=== PATIENT | female | born 1955 | race Caucasian/White ===

== ENCOUNTER → 2024-01-23 10:22 | Outpatient (BNVA) | payer MEDICARE, OTHER, SELFPAY | PROVIDERS: PCP Internal Medicine; Referring Provider Internal Medicine; Visit Provider Surgery ==

== ENCOUNTER 2024-01-23 12:22 | Outpatient (CLI) | payer MEDICARE, OTHER, SELFPAY ==
[2024-01-23 12:18] LABS: Prothrombin Time 10.3 sec (9.1-11.1)
[2024-01-23 14:18] LABS: ALT 26 U/L (14-59); AST 24 U/L (15-37); Alkaline Phosphatase 191 U/L (46-116); Bilirubin, Direct 0.2 mg/dL (0.0-0.2); Bilirubin, Total 0.47 mg/dL (0.2-1.0); Total Protein 8.5 g/dL (6.4-8.2)
== END 2024-01-23 12:23 | disposition home or self-care (01) ==
LOC: LBO 12:26
PROVIDERS: PCP Internal Medicine; Visit Provider Surgery
DX: K74.60 Unspecified cirrhosis of liver (principal); R16.1 Splenomegaly, not elsewhere classified; I85.00 Esophageal varices without bleeding; K76.6 Portal hypertension; K92.2 Gastrointestinal hemorrhage, unspecified
CPT/HCPCS: 36415; 80076; 99204; 85610

== ENCOUNTER 2024-01-30 01:59 | Outpatient (CLI) | payer MEDICARE, SELFPAY ==
--- NOTE | 2024-01-30 06:45 | DI.US_ITS ---
Exam(s) US ABDOMEN EXAM: US ABDOMEN CLINICAL HISTORY: esophageal varices,cirrhosis of liver,splenomegaly,portal hypertension TECHNIQUE: Ultrasound abdomen performed using standard protocol. COMPARISON: No exams were available for comparison FINDINGS: ABDOMINAL AORTA AND IVC: Visualized portions normal caliber. PANCREAS: Normal where visualized. LIVER: The liver has a nodular contour suggesting hepatic cirrhosis. The liver measures 13.9 cm long . Liver is echogenic. This is consistent with fatty infiltration. Hepatopetal flow in the Portal V ein. GALLBLADDER:Gallstones are present. No evidence of wall thickening. No pericholecystic fluid identif ied. BILIARY SYSTEM: Common bile duct measures < 7 mm. No intrahepatic biliary ductal dilation. WHITE'S SIGN: Negative. KIDNEYS: Kidneys are symmetric in size. No evidence of renal calculi. No evidence of hydronephrosis. There is a 2.5 x 3.0 cm simple left renal cyst. No follow-up is recommended. SPLEEN: Not enlarged. ASCITES: None seen. IMPRESSION: 1. Findings suggestive of hepatic cirrhosis and hepatic steatosis. 2. Cholelithiasis. No sonographic evidence of acute cholecystitis. DATA REPOSITORY:
== END 2024-01-30 02:19 ==
LOC: DI 02:00
PROVIDERS: PCP Internal Medicine; Visit Provider Surgery
DX: R16.1 Splenomegaly, not elsewhere classified; I85.00 Esophageal varices without bleeding
CPT/HCPCS: 76700

== ENCOUNTER 2024-02-26 09:49 | Day surgery (SDC) | payer MEDICARE, SELFPAY ==
--- NOTE | 2024-02-25 14:58 | HPE_ITS ---
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 and/or family could understand) explaining risks vs benefits and alternatives to the procedure and consequences if we do not do the procedure and need/rational for the procedure. Risks include but are not limited to: bleeding, infection, perforation of esophagus, stomach, colon, small intestines, bronchus or trachea, or PTX. This would necessitate emergency surgery to repair the damage w/ possible ostomy; and other associated complications w/ the required surgery. Also complications of anesthesia including aspiration, WA/CVA/. History of Present Illness Narrative: Patient is here today for egd for anemia/varices They not having any chest pain or shortness of breath, currently.? They are not experiencing any fever or chills.? They deny any productive cough or upper respiratory tract infection signs or symptoms.? They are not having abdominal pain, or nausea and vomiting.? They have not had any changes in medications, past medical history or past surgical history since previously being seen in the office. They have not had any accidents or have been in the ER since the clinic pre-operative evaluation. ??I reviewed the procedure with the patient today, including risks and benefits of the procedure, and what they could expect at home for recovery.? All questions are answered to the patient?s satisfaction today, and they are stable to proceed with the proposed procedure. Office Visiti 01/22 (1) Splenomegaly, not elsewhere classified: (2) Unspecified cirrhosis of liver: 1. Iron Deficiency Anemia. Her recent lab results are satisfactory, with no evidence of blood in the stool. However, her iron levels are slightly low, albeit within normal range. The primary concern is her liver condition. She has a history of esophageal varices, with the last stomach scope performed 2 years ago. Her hemoglobin levels were mildly low around July or August 2023. Currently, she does not have ascites and is maintaining her weight. A repeat CBC will be conducted. A liver panel and bleeding time will be ordered today. An ultrasound has been scheduled to monitor her liver and spleen. An endoscopy will be arranged for February 2024 to examine her esophagus, stomach, and varices. Biopsies will be taken from the stomach during this procedure. She is advised to arrange for someone to drive her home post-procedure and to rest for the remainder of the day. A release form will be provided for her to sign so that her records from the animal eviscerator and trading assistant in [place] can be obtained. If the varices are larger than grade 2 or increasing in size, a referral will be made for esophageal banding. 2. Esophageal Varices. She has a history of esophageal varices, with the last stomach scope performed 2 years ago. Currently, she does not have ascites and is maintaining her weight. An endoscopy will be arranged for February 2024 to examine her esophagus, stomach, and varices. Biopsies will be taken from the stomach during this procedure. She is advised to arrange for someone to drive her home post- procedure and to rest for the remainder of the day. If the varices are larger than grade 2 or increasing in size, a referral will be made for esophageal banding. 3. Liver Disease. She has a history of liver disease, including cirrhosis and esophageal varices. A liver panel and bleeding time will be ordered today. An ultrasound has been scheduled to monitor her liver and spleen. She is advised to abstain from alcohol completely and to quit smoking. A release form will be provided for her to sign so that her records from the animal eviscerator and trading assistant in [place] can be obtained. 4. Medication Management. She is currently taking omeprazole 20 mg once a day for her stomach. She reports no issues with the medication. Informed consent is obtained for the procedural (explained in simple layman's terms that the pt. and/or family could understand) explaining risks vs benefits and alternatives to the procedure and consequences if we do not do the procedure and need/rational for the procedure. Risks include but are not limited to: bleeding, infection, perforation of esophagus, stomach, colon, small intestines, bronchus or trachea, or PTX. This would necessitate emergency surgery to repair the damage w/ possible ostomy; and other associated complications w/ the required surgery. Also complications of anesthesia including aspiration, WA/CVA/. I am also awaiting the results of her last colonoscopy from [place] and to review pathology. At the this time I do not think she needs to have a repeat colonoscopy. But I do want to see her previous report before I make that final determination. Will also get further reports from her GI and animal eviscerator in [place]. They are moving to [place] permanently/will no longer be going to [place] for chung. (3) Gastrointestinal hemorrhage, unspecified: (4) Portal hypertension: (5) Esophageal varices without bleeding: Orders RN: pt referred to us by Dr. Sandoval, reports past history of blood transfusion, history of cirrhosis of liver, states stopped drinking alcohol 2 years ago. Pt states SOB, relates this to smoking PPD for 50 years, currently down to 1/2 pack a day. Pt denies family history of colon cancer. Pt denies weight loss or loss of appetite. The patient has had an EGD previously. ? There is no family history of any esophageal/gastric cancer.? Patient has not had any weight loss.? Their appetite is good.? The patient has been eating: yes Stomach medications: omeprazole. about a year Swallowing: Reflux/Wet Burps: Nausea/vomiting: no Epigastric pain: no Chest pain/burning: Melena/blood in stools/anemia: anemia- mild. Constipation or diarrhea: occ both. Dental issues: Nocturnal problems: Prior head/neck/esophageal surgery or radiation. Pt may have had a stomach scope in [facility]. had CE at same time unsure of dates. We do not have any endoscopy reports or pathology. We will attempt to obtain these. Coffee: 1 decaf Soda/Tea: none ASA/NSAID?s: no asa. ibuprofen- 1/week. Tobacco: 1/2 ppd THC: ETOH: no They deny any problems with anesthesia in the past. Anesthesia: general (without airway) Previous surgical intolerances: No Previous surgical complications: No Pulmonary risk factors: Planned procedure: Yes Sleep apnea risks: No COPD/Asthma/Smoker: smoker. denies copd. no COREY Can climb one flight of stairs (12-13 steps) in less than 30 seconds without stopping and without symptoms: Yes The surgery proposed for this patient is: low risk Active cardiac conditions: none Active risk factors: none ASA (acetylsalicylic acid): not used Beta blockers: not used Kidneys: no concerns DM: no no prior stress test or echo pt is saware of. US of liver 2 yrs ago. liver cirrohsis had ascites at that time. Hep C- doens' tknow status. sees heme in [facility]. Cheryl- dalia poe- Gi doctor No WA/CVA ?Patient needs to be Natural airway general because of:? Medical conditions/airway control/ ?Pain control? Meds/NKDA/PMHx/PSHx: see [facility] The patient is a 68-year-old female who is here today regarding iron deficiency anemia. She is a patient of Dr. Gimenez and is accompanied by an adult male. She reports no pain or difficulty swallowing and has not experienced heartburn or indigestion. She maintains a good appetite without any weight loss. She does not suffer from nausea or vomiting and has not observed any blood or dark tarry stools. However, she occasionally experiences constipation and diarrhea. She has been on omeprazole once daily for about a year. She underwent a stomach scope in 2020 and a colonoscopy in [place], [place]. Her diet includes one cup of decaf coffee daily, but she avoids soda, tea, and energy drinks. She does not take aspirin daily but uses ibuprofen approximately once a week for headaches. She smokes half a pack a day and quit drinking alcohol two years ago. She has never been diagnosed with emphysema, COPD, sleep apnea, heart attack, stroke, or diabetes. She has not undergone a stress test or echo of her heart, nor has she had a recent CT or ultrasound of her liver. The last imaging of her liver was likely two years ago when she was hospitalized and diagnosed with cirrhosis. At that time, 2.7 liters of fluid were drained from her abdomen, but this procedure has not been repeated. She underwent extensive testing during her hospital stay, including a bone marrow aspiration. Her last visit to the cancer center was six to seven months ago, where she saw a animal eviscerator and had her liver and kidney function tested. She was prescribed Protonix for esophageal varices but has not had any active bleeding or noticed blood in her stools. She has not had a recent ultrasound of her liver but believes her liver labs were repeated in [place] six months ago as part of her routine blood work. She has not undergone esophageal banding. She reports no leg swelling and had no issues with anesthesia during her last procedure. She has two artificial hips and may require a revision of her hip socket due to chronic pain. Review of Systems All systems reviewed & are unremarkable except as noted in HPI and below PFSH All Active Problems Polyneuropathy, unspecified (Acute) Unspecified cirrhosis of liver (Acute) Splenomegaly, not elsewhere classified (Acute) Warm autoimmune hemolytic anemia (Acute) Medical History Esophageal varices without bleeding Portal hypertension Gastrointestinal hemorrhage, unspecified Surgical History Hx of bilateral hip replacements History of colonoscopy (~06/17/21) Normal colonoscopy, internal hemorrhoids done at [facility]. Social History Smoking/Tobacco Use Status: Current every day Tobacco Type: cigarettes Smoking risk assessment performed?: Yes Alcohol Intake: never Drug use: Never Substance use type: does not use Housing: house Do you feel safe at home: Yes Do you feel safe in your relationship?: Yes Meds Allergies and Home Medications Allergies Allergy/AdvReac Type Severity Reaction Status Date / Time heparin Allergy Unknown Pt reports Verified 02/26/24 09:56 post op [facility] Right total hip codeine AdvReac Intermediate nausea Verified 02/26/24 09:56 Home Medications ?Medication ?Instructions ?Recorded ?Confirmed ?Type albuterol sulfate 90 mcg/actuation 2 puff inhalation Q6H PRN 12/26/23 02/26/24 History aerosol inhaler alprazolam 1 mg tablet (Xanax) 1 mg PO BID PRN 01/23/24 02/25/24 History dorzolamide 22.3 mg-timolol 6.8 1 drp ophthalmic (eye) BID 01/23/24 02/25/24 History mg/mL eye drops folic acid 1 mg tablet 1 mg PO DAILY 01/23/24 02/26/24 History gabapentin 300 mg capsule 300 mg PO BID PRN 01/23/24 02/25/24 History latanoprost 0.005 % eye drops 1 drp ophthalmic (eye) QPM 01/23/24 02/25/24 History mecobalamin (vitamin B12) 1,000 1,000 mcg PO DAILY 01/23/24 02/25/24 History mcg chewable tablet omeprazole 20 mg capsule,delayed 20 mg PO DAILY 01/23/24 02/26/24 History release Exam Narrative Exam Narrative: PHYSICAL EXAM GENERAL APPEARANCE: Alert, healthy appearance, oriented, x 3,? in no acute distress HYDRATION: Well hydrated HEAD, EYES, EARS, NECK, THROAT: Head is normocephalic, pupils equal, round, reactive to light and accommodation, ocular movement intact, sclera clear and no jaundice. ?Dentition intact. LUNGS: normal respiration/normal chest excursion. ?Clear to auscultation bilaterally. ?No wheeze. ?HEART: Regular rate and rhythm. no murmurs ABDOMEN: soft and non-tender to palpation.? Normal bowel sounds.? Const Other: PHYSICAL EXAM GENERAL APPEARANCE: Alert, healthy appearance, oriented, x 3,? in no acute distress HYDRATION: Well hydrated HEAD, EYES, EARS, NECK, THROAT: Head is normocephalic, pupils equal, round, reactive to light and accommodation, ocular movement intact, sclera clear and no jaundice. ?Dentition intact. LUNGS: normal respiration/normal chest excursion. ?Clear to auscultation bilaterally. ?No wheeze. ?HEART: Regular rate and rhythm. no murmurs ABDOMEN: soft and non-tender to palpation.? Normal bowel sounds.? Time Spent Time spent with Patient: <40 minutes Time was spent: preparing to see the patient(eg.review tests), obtaining and/or reviewing separately otained hiistory, ordering medications,tests, procedures, referring, communicating with other health day care home provider, indepentently interpreting results, counseling the patient, care coordination and other
--- NOTE | 2024-02-25 15:02 | ENDO_ITS ---
Date of service: 02/26/24 Time of Service: 11:30 Endoscopy Report DATE OF PROCEDURE: 02/26/24 PRE-OP DIAGNOSIS: Anemia/history of cirrhosis and esophageal varices secondary to alcohol POST-OP DIAGNOSIS: other (minmmal gastritis ) SURGEON: Hilda Lorenzo ANESTHESIA TYPE: General:No Airway PATHOLOGY: other COMPLICATIONS: None DISPOSITION: same day PROCEDURE DESCRIPTION: Informed consent was obtained from the pt; explaining the benefits and Risks: bleeding, infections, perforations {which could require surgery or antibiotics and prolonged hospital stay}, or ostomy, and complications of anaesthesia, julissa aspiration). The patient was take to the procedure room and placed in a supine position. Monitors were applied and a time out was done. The patients name, date of , procedure type, allergies to medications and metal in their body was reviewed. A bite block was placed and the patient was sedated. Once sedated and comfortable an Olympus gastroscope (see RN notes for scope #) was advanced through the oropharynx which was grossly normal, and passed into the esophagus. The proximal and mid-esophagus were normal. The distal esophagus does not show any: dilation/strictures/varices/erosions or ulcers/bleeding noted. The scope was advanced into the stomach and through the pylorus into the proximal jejunum. A bx is taken for celiac Dx . The duodenum was noted to be- very mild duodenitis. Biopsies were done of the duodenal bulb.. The scope was retracted back into the stomach and biopsies were taken of the antrum. There were no gastritis/gastropathy/ ulcers/masses noted. The scope was retroflexed. The cardia and fundus were noted to be normal. There is no hiatal hernia noted. The scope was retracted back into the esophagus and biopsies were done of the GE junction (in all 4 quadrants) and distal esophagus (2cm above the GE junction) to rule out Roberts's. All specimens are retrieved and no bleeding was noted. The Z line was regular. The GE junction was at 38 cm. The scope was removed and the patient was woken up and taken back to [facility] in stable condition.
--- NOTE | 2024-02-25 15:03 | PDOC.DSDIS_ITS ---
Date of service: 02/26/24 Time of Service: 11:45 Discharge Plan Disposition Patient Disposition: Home Condition: Good Discharge Details Reason For Visit: egd Attending Provider: Hilda Lorenzo Primary Care Provider: Yocasta Sandoval Home Meds and New Rx's Prescriptions: New pantoprazole [Protonix] 40 mg tablet,delayed release (DR/EC) 40 mg PO DAILY Qty: 90 5RF Continued folic acid 1 mg tablet 1 mg PO DAILY mecobalamin (vitamin B12) 1,000 mcg tablet,chewable 1,000 mcg PO DAILY latanoprost 0.005 % drops 1 drp ophthalmic (eye) QPM dorzolamide-timolol 22.3-6.8 mg/mL drops 1 drp ophthalmic (eye) BID gabapentin 300 mg capsule 300 mg PO BID PRN alprazolam [Xanax] 1 mg tablet 1 mg PO BID PRN albuterol sulfate 90 mcg/actuation HFA aerosol inhaler 2 puff inhalation Q6H PRN Discontinued omeprazole 20 mg capsule,delayed release(DR/EC) 20 mg PO DAILY Discharge Instructions Additional Instructions: Post EGD Instruction ?You had anesthesia for your EGD/stomach scope today.? For your safety, please do the following for the next twenty-four (24) hours: Do Not operate a motor vehicle (car, truck, motorcycle, etc.) Do Not drink alcoholic beverages or use any recreational drugs for the first 24 hours or while taking pain medications. The medications in your body may have a reaction that can be dangerous. Do Not make any important decisions or sign any important papers You have just had a gastroscopy (EGD) or upper GI tract examination. It is important for your smooth recovery that you carefully follow the recommendations below. Do not hesitate to call if any questions should arise about your anesthesia, condition, or care. -Symptoms you may experience during the next 24 hours: ?1. Mild abdominal pain or excessive gas or a bloated feeling which improves with rest, liquids, eating? slightly, and walking as tolerated. 2. Drowsiness and/or forgetfulness because of the medications you were given. 3. A sore throat which you can treat with throat lozenges or by gargling with salt water 4-5 times a day. 4. Redness at the site of your IV which you can treat with warm compresses. SPECIAL INSTRUCTIONS: 1. You may resume your previous diet in one hour. We recommend a light meal to start, then progress as tolerated. 2. Restart regular medications in one hour. 3. No aspirin or non-steroidal containing medication for 24 hrs. 4. No lifting over 20 pounds or strenuous activity for the first 24 hours after your procedure. After 24 hours there are no restrictions on your activity, but you may feel fatigued for a few days. -Findings: very mild gastritis (irritation) of stomach -Medications: Protonix -Continue to follow lifestyle modifications: No alcohol (lifelong) , tobacco products, Aspirin or NSAID's (ibuprofen, Motrin, Naprosyn, aleve, etc).? Try to limit/avoid:? soda pop/any carbonated beverages, caffeine (including tea & chocolate), and acidic foods, (tomatoes, citrus, onions, peppermints) spicy or fried/fatty foods. Do not lie down for 30 minutes after eating, and do not eat 2 hours prior to bedtime. Avoid wearing tight fitting clothing/ belts. Follow up: -My office will send a letter with the results of your biopsy?s in 2-3wks time. Call the office at [phone] (Office) or [phone] (Hospital), or go to the ER right away if you notice any of the followin. Vomiting blood and /or ?coffee ground? material. ?2. Worsening of abdominal pain or cramping. ?3. Trouble with breathing, cough, and/or fever (temperature above 101.5 F). 4. Increasing pain with swallowing. ?5. Chest pain. 6. Any new symptoms. 7. 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 Patient has minimal sore throat.? They have been able to tolerate liquids.? They do not have any nausea vomiting.? They are not having any chest pain or shortness of breath.? They have been able to pass gas and are not having any abdominal pain or distention.? They have not vomited any blood.? The vital signs have been stable-see nursing notes. We discussed findings on their endoscopy. We reviewed the importance of lifestyle modification-see discharge instructions We reviewed any new medications that the patient may be prescribed-see discharge instructions Patient will either be sent a letter with the biopsy results or follow-up in the office-see discharge instructions. Patient was given explicit instructions to follow-up regarding post endoscopy- refer to discharge Patient verbalized understanding and discharged in stable and satisfactory condition.? See nursing notes. (6) Portal hypertension: (7) Gastrointestinal hemorrhage, unspecified: (8) Gastritis: Status: Acute
[2024-02-26 09:58] VITALS: BP 120/66; PULSE 86; RESP 18; TEMP 36.2; O2SAT 100
[2024-02-26] MEDS: Lactated Ringers 1,000 ML 80 ML IV (10:19)
--- NOTE | 2024-02-26 10:21 | ANES.PREOP_ITS ---
General Info Date of Service Date Performed: 02/26/24 Height: 5 ft Weight: 57.6 kg Body Mass Index (BMI): 24.7 Surgical Procedure: Operation Date: 02/26/24 10:20 Proposed Procedure Side Surgeon p Gastroscopy Hilda Lorenzo DO Pre-Op Diagnosis Post-Op Diagnosis Esophageal varices GI hemorrhage Meds Allergies and Home Medications Allergies Allergy/AdvReac Type Severity Reaction Status Date / Time heparin Allergy Unknown Pt reports Verified 02/26/24 09:56 post op [place] Right total hip codeine AdvReac Intermediate nausea Verified 02/26/24 09:56 Home Medication ?Medication ?Instructions ?Recorded albuterol sulfate 90 mcg/actuation 2 puff inhalation Q6H PRN 12/26/23 aerosol inhaler alprazolam 1 mg tablet (Xanax) 1 mg PO BID PRN 01/23/24 dorzolamide 22.3 mg-timolol 6.8 1 drp ophthalmic (eye) BID 01/23/24 mg/mL eye drops folic acid 1 mg tablet 1 mg PO DAILY 01/23/24 gabapentin 300 mg capsule 300 mg PO BID PRN 01/23/24 latanoprost 0.005 % eye drops 1 drp ophthalmic (eye) QPM 01/23/24 mecobalamin (vitamin B12) 1,000 1,000 mcg PO DAILY 01/23/24 mcg chewable tablet omeprazole 20 mg capsule,delayed 20 mg PO DAILY 01/23/24 release Current Visit Medications: Current Medications Generic Name Dose Route Start Last Admin Trade Name Freq PRN Reason Stop Dose Admin Hyoscyamine Sulfate 0.125 mg 02/26/24 03:01 Hyoscyamine 0.125 Mg Sl/Oral/Chew SL 03/27/24 03:00 DIRECTED PRN Ringer's Solution 1,000 mls @ 80 mls/hr 02/26/24 06:00 02/26/24 10:19 IV 03/26/24 23:59 80 mls/hr INFUSION WANDA Administration IV Miscellaneous Supplies 1 each 02/26/24 06:00 Iv Access IV 03/26/24 23:59 DIRECTED WANDA Ondansetron HCl 4 mg 02/26/24 03:01 Ondansetron 4 Mg/2 Ml Vial IVP 03/27/24 03:00 Q4H PRN PRN Nausea / Vomiting Sodium Chloride 0 ml 02/26/24 06:00 Normal Saline Flush 10 Ml Syr IV 03/26/24 23:59 PRN PRN Sodium Chloride 0 ml 02/26/24 06:00 Normal Saline 10 Ml Vial IJ 03/26/24 23:59 DIRECTED PRN Sterile Water 0 ml 02/26/24 06:00 Water,Injection,Sterile 10 Ml Vial IJ 03/26/24 23:59 DIRECTED PRN PFSH Active Problems Active Problems: Problem Status Onset Code Polyneuropathy, unspecified Acute G62.9 Unspecified cirrhosis of liver Acute K74.60 Splenomegaly, not elsewhere classified 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 Tobacco Smoking/Tobacco Use Status: Current every day Tobacco Type: cigarettes Alcohol Alcohol Intake: never Substance Use Substance use: Never Substance use type: does not use Vital Signs and Lab Results Vital Signs Most Recent Vital Signs in EMR: Most Recent Vital Signs Temp Pulse Resp BP Pulse Ox 36.2 C L 86 18 120/66 100 02/26/24 09:58 02/26/24 09:58 02/26/24 09:58 02/26/24 09:58 02/26/24 09:58 Lab Results Blood Type / Crossmatch: No Data to Display Complete Blood Count: No Data to Display Complete Metabolic Panel: No Data to Display Liver Function Panel: No Data to Display Coagulation Panel: No Data to Display Cardiac Panel: No Data to Display Arterial Blood Gas: No Data to Display Venous Blood Gas: No Data to Display Pancreas Panel: No Data to Display Thyroid Panel: No Data to Display Infectious Disease: No Data to Display Blood Cultures: No Data to Display Toxicology Panel: No Data to Display Anesthesia Assessment and Plan Anesthesia History Personal History: No History of Anesthesia Complications Family History: No Family History of Anesthesia Complications Exercise Tolerance Exercise Tolerance: Metabolic Equivalents>4 Pertinent Negatives Pertinent Negatives: No Symptoms of GERD Cardiac & Pulmonary Exam Cardiac Exam: Normal S1/S2 Heart Sounds Pulmonary Exam: Clear Bilateral Breath Sounds Implantable Cardiac Device Does patient have a Pacemaker or an ICD?: No Airway Exam Known Difficult Airway: No Mallampati Class: 2 Mouth Opening: Normal (> 3cm) Thyromental Distance: Greater than 3 cm Neck Range of Motion: Full ROM Neck Circumference: Normal Teeth Condition: Normal Dentition ASA Classification ASA Score: ASA 2 Emergency Case?: No NPO Status NPO Status: NPO Clears >2 hours, Solids >8 hours Anesthesia Plan Resuscitation Status: Full Code Anesthesia Technique: General Anesthesia Airway Planned: Natural Airway Monitors Used: Standard Monitors
[2024-02-26 10:23] VITALS: BMI 24.7
--- NOTE | 2024-02-26 10:57 | STOM_PTH ---
PATIENT: Urszula Lewis LOC: [facility] U#:[id number] AGE/SX: 68/F ROOM: RE02/26/[address]: Hilda Lorenzo : 1955 BED: DIS: 02/26/2024 SPEC #: [id number] RECD: 02/26/24 12:47 STATUS: TREVOR REQ #: [id number] LEIGH ANN: 02/26/24 10:[address]: Hilda Lorenzo DEPT: Surgical Specimen RECD BY: Leta Echols ENTERED: 02/26/24 12:48 SP TYPE: STOMACH OTHR DR: Yocasta Sandoval Tissues: 1 - BIOPSY BOWEL 2 - BIOPSY BOWEL 3 - STOMACH BIOPSY 4 - STOMACH BIOPSY 5 - ESOPHAGUS BIOPSY 6 - ESOPHAGUS BIOPSY Procedures: GROSS AND MICRO LEVEL 4 IMMUNOPEROXIDASE STAIN Comments: [id number]
[2024-02-26 11:09] VITALS: BP 111/70; PULSE 84; RESP 18; TEMP 36.1; O2SAT 96
[2024-02-26 11:38] VITALS: BP 124/73; PULSE 72; RESP 18; TEMP 36; O2SAT 98
--- NOTE | 2024-02-26 12:23 | W.ANESPOSTOP ---
Postoperative Evaluation Date, Time and Location Date Performed: 02/26/24 Time Performed: 11:45 Patient Location: Day Surgery Unit Vital Signs Most Recent Imported Vital Signs: Most Recent Vital Signs Temp Pulse Resp BP Pulse Ox 36.0 C L 72 18 124/73 98 02/26/24 11:38 02/26/24 11:38 02/26/24 11:38 02/26/24 11:38 02/26/24 11:38 Pain Score Most Recent Pain Score: Most Recent Pain Score Pain Level 0 02/26/24 11:38 Assessment Mental Status: Awake (Alert & Oriented to Patient Baseline) Airway and Respiratory Function: Patent airway with normal (patient baseline) respiratory exam Cardiovascular Function: Hemodynamically Stable Hydration Status: Adequately Hydrated Nausea & Vomiting: No Nausea or Vomiting Pain: Pt. Denies Any Pain Peripheral Nerve Block: Patient did not receive a nerve block
== END 2024-02-26 12:20 | disposition home or self-care (01) ==
PROVIDERS: PCP Internal Medicine; Visit Provider Surgery
PROC: 0DJ68ZZ Inspection of Stomach, Via Natural or Artificial Opening Endoscopic (ICD-10-PCS; CPT 43235; principal; 2024-02-26 10:15)
DX: K29.80 Duodenitis without bleeding; K29.70 Gastritis, unspecified, without bleeding; I85.00 Esophageal varices without bleeding; D59.11 Warm autoimmune hemolytic anemia; K74.60 Unspecified cirrhosis of liver; K31.89 Other diseases of stomach and duodenum; K22.89 Other specified disease of esophagus
CPT/HCPCS: 43239; 88305; 88361; J2704

== ENCOUNTER 2024-04-01 01:37 | Outpatient (CLI) | payer MEDICARE, SELFPAY ==
--- NOTE | 2024-04-01 | DI.MAMMO_ITS ---
Exam(s) MAMMO SCREENING EXAM: MAMMO SCREENING CLINICAL HISTORY: Screening TECHNIQUE: Mammograms were interpreted according to the usual protocol including computer analysis w [employer] CAD system, tomosynthesis and C-view imaging. COMPARISON: 2010 FINDINGS: The breasts are composed of scattered fibroglandular densities, Breast Density category B. No suspicious masses or suspicious microcalcifications are seen in the left breast. In the lateral central right breast, there is an area architectural distortion. Additionally, in the subareolar region there is a question of an area of nodularity. Spot compression views and ultrasou nd are requested for further evaluation. No skin thickening or abnormal axillary lymph nodes are seen in either breast. IMPRESSION: BI-RADS Category 0 - Incomplete: Need additional imaging evaluation Breast Density - Category B, scattered fibroglandular densities. A negative radiographic report should not delay biopsy if a dominant or clinically suspicious mass is present. Up to ten percent of cancers are not identified on mammography. A negative report may reinforce clinical impression. Adenosis and dense breasts may obscure an underlying neoplasm. False positive reports average 6 to 10%. Patient will receive a letter notifying them of these results.
== END 2024-04-01 01:57 ==
LOC: DI 01:37
PROVIDERS: PCP Internal Medicine; Visit Provider Internal Medicine
DX: Z12.31 Encounter for screening mammogram for malignant neoplasm of breast (principal); R92.323 Mammographic fibroglandular density, bilateral breasts
CPT/HCPCS: 77063; 77067

== ENCOUNTER 2024-04-22 01:57 | Outpatient (CLI) | payer MEDICARE, SELFPAY ==
--- NOTE | 2024-04-22 10:30 | DI.US_ITS ---
Exam(s) MG MAMMO SCREEN CALL BACK UNI US BREAST RT COMPLETE EXAM: MG MAMMO SCREEN CALL BACK UNI and U/S breast RT complete CLINICAL HISTORY: ARCHITECTURAL DISTORTION LATERAL CENTRAL RIGHT BREAST R92.8 ABNL MAMMO. TECHNIQUE: Craniocaudal and mediolateral oblique Full Field Digital Mammography views with Computer Aided Diagnosis followed by Tomosynthesis and right breast ultrasound. All 4 quadrants of the right breast were evaluated sonographically in addition to the retroareolar region and right axilla. COMPARISON: US US BREAST RT COMPLETE from 04/22/2024 FINDINGS: Mammography/Tomosynthesis: Masses/Architectural Distortion: The area of architectural distortion at the 9 o'clock position of th e right breast persists. There is an ovoid density again seen in the retroareolar region of the righ t breast best appreciated on the MLO view. Microcalcifictions: No suspicious pleomorphic-type are seen. Skin Thickening/Nipple Retraction: None. Complete right breast US: Echotexture: Normal appearance of the glandular tissue. Shadowing: There is a 4 x 6 x 4 mm irregular least/spiculated hypoechoic mass at the 8 o'clock positi on of the right breast 1 cm from the nipple. The findings are suspicious for malignancy. No other c ystic or solid masses are seen sonographically. Cyst: None. Solid lesions: None seen. Ductal dilation: None. IMPRESSION: 1. 6 mm spiculated mass at the 8 o'clock position of the right breast 1 cm from the nipple suspicious for malignancy. 2. Biopsy is recommended in this patient. 3. The findings were discussed with the patient on the date of the examination. Attempts were made t o contact the ordering physician. Once the ordering physician's contacted, an addendum will be issued . BI-RADS Category 5 - Highly Suggestive of Malignancy: Biopsy recommended Breast Density - Category B - Scattered areas of fibroglandular density Breast density Category C or D implies that the patient has dense breast tissue. Dense breast tissue can make it harder to find cancer on a mammogram. Dense breast tissue is also associated with an incr eased risk of breast cancer. This information about the result of the mammogram report was provided to the patient to raise their awareness. Use this report when you speak with the patient about their risks for breast cancer, which includes their family history. At that time, you may recommend additional screening tests (Ultrasoun d or MRI) as these tests may add significant information. A negative radiographic report should not delay biopsy if a dominant or clinically suspicious mass is present. Up to ten percent of cancers are not identified on mammography. A negative report may reinforce clinical impression. Adenosis and dense breasts may obscure an underlying neoplasm. False positive reports average 6 to 10%. Patient will receive a letter notifying them of these results.
== END 2024-04-22 02:17 ==
LOC: DI 01:57
PROVIDERS: PCP Internal Medicine; Visit Provider Internal Medicine
DX: R92.8 Other abnormal and inconclusive findings on diagnostic imaging of breast (principal); Z12.31 Encounter for screening mammogram for malignant neoplasm of breast
CPT/HCPCS: 76642; 77063; 77067

== ENCOUNTER 2024-08-13 01:16 | Outpatient (CLI) | payer MEDICARE, SELFPAY ==
--- NOTE | 2024-08-13 | DI.CT_ITS ---
Exam(s) CT CHEST W EXAM: CT CHEST W CLINICAL HISTORY: Malignant neoplasm of lower outer quadrant, rt breast, C50.511, Z17.0; 8 mm TECHNIQUE: Imaging Protocol: Axial computed tomography images with coronal and sagittal reformatted images were created and reviewed. Computer aided detection (CAD) was utilized. CONTRAST MATERIAL: Intravenous: Omnipaque 350Contrast volume:70 mL. COMPARISON: No exams were available for comparison FINDINGS: Tracheobronchial tree: Patent where visualized. No evidence of bronchiectasis. Pulmonary parenchyma: There are few small ground-glass nodules in the lungs. The largest is in the r ight upper lobe and measures 6 mm (series 8, image 31). No focal consolidating infiltrates are seen. No architectural distortion. Mediastinum and Kim: No dominant adenopathy or fluid collection. The esophagus is unremarkable. Thyroid gland: Unremarkable. Pleura: No effusion or pneumothorax. Heart: The heart is not dilated. No coronary artery calcifications are seen. No pericardial effusion. Aorta: Thoracic aorta non-dilated. Mild atherosclerotic calcification is present. No evidence of dis section. Pulmonary arteries: No pulmonary emboli are identified. Upper abdomen: There is a small cyst in the left lobe of the liver. There is a cyst in the superior pole of the left kidney. It is incompletely imaged but grossly unremarkable. No follow-up is recom mended. This was identified on the ultrasound from 01/30/2024. Lymph nodes: Within normal limits. Bones: Within normal limits for the patient's age. There is an old L1 compression deformity. Age-ap propriate degenerative changes are seen in the spine. Soft tissues: There is a spiculated mass seen in the outer right breast corresponding to the patient' s known malignancy. IMPRESSION: 1. There are few small ground-glass nodules in the lungs. The largest measures 6 mm in the right upp er lobe. Given the clinical history metastatic disease cannot be excluded. Infectious or inflammato ry process should also be considered. 2. Spiculated right breast mass consistent with the patient's known breast carcinoma. RADIATION DOSE DELIVERED: 84.85mGy.cm Total DLP DATA REPOSITORY: All CT scans at this facility are submitted to the National Radiology Data Registry (NRDR) Dose Index Registry (DIR) with the [employer] ([employer]). RADIATION OPTIMIZATION: All CT scans at this facility use at least one of these dose optimization te chniques: automated exposure control; mA and/or kV adjustment per patient size (includes targeted exa ms where dose is matched to clinical indication); or iterative reconstruction.
[2024-08-13 12:04] LABS: CREATININE 0.8 mg/dL (0.55-1.02); Estimated GFR 79.22 (mL/min/1.73m2)
[2024-08-13] MEDS: Normal Saline - Diluent 50 ML VIAL IJ (12:50)
[2024-08-13] MEDS: Omnipaque 350 MG/ML 100 ML BTL IJ (12:51)
== END 2024-08-13 01:36 ==
LOC: DI 01:16
PROVIDERS: PCP Internal Medicine; Visit Provider Radiology Radiation Oncology
DX: C50.511 Malignant neoplasm of lower-outer quadrant of right female breast (principal); Z17.0 Estrogen receptor positive status [ER+]
CPT/HCPCS: 71260; 82565; J3490

== ENCOUNTER 2024-08-21 00:41 | Outpatient (CLI) | payer MEDICARE, SELFPAY ==
--- NOTE | 2024-08-21 | DI.DEXA_ITS ---
Exam(s) XR DEXA BONE DENSITY W/WO BRICE EXAM: XR DEXA BONE DENSITY W/WO BRICE CLINICAL HISTORY: Osteopenia, M85.88 TECHNIQUE: Routine DEXA evaluation of the lumbar spine, hip, or forearm. COMPARISON: No exams were available for comparison FINDINGS: Performed on a Hologic unit. Lateral image: There is a 40 percent compression fracture of superior endplate of L1. Lumbar Spine total T-score: -0.3 Hip total T-score:Hip prosthesis Independent reading at the level of the femoral neck yields T-score of the prosthesis Forearm total T-score: -2.5, which is in the osteoporosis range. IMPRESSION: Bone mineral density measures in the osteoporosis range. Fracture risk is high Note: Any spine fracture indicates 5x risk for subsequent spine fracture and 2x risk for subsequent h ip fracture. World Health Organization criteria for BMD interpretation classify patients: Normal...... T- Score at or above -1.0 Osteopenic... T- Score between -1.0 and -2.5 Osteoporosis... T-Score at or below -2.5
== END 2024-08-21 01:01 ==
LOC: DI 00:42
PROVIDERS: PCP Internal Medicine; Visit Provider Internal Medicine
DX: M85.88 Other specified disorders of bone density and structure, other site (principal)
CPT/HCPCS: 77080

== ENCOUNTER 2024-10-24 00:19 | Outpatient (CLI) | payer MEDICARE, SELFPAY ==
--- NOTE | 2024-10-24 | DI.CT_ITS ---
Exam(s) CT CHEST W EXAM: CT CHEST W CLINICAL HISTORY: Multiple lung nodules, largest RUL, f/u, R91.1 TECHNIQUE: Imaging Protocol: Axial computed tomography images with coronal and sagittal reformatted images were created and reviewed. Computer aided detection (CAD) was utilized. CONTRAST MATERIAL: Intravenous: Omnipaque 350 Contrast volume:structured data ml. COMPARISON: CT CT CHEST W from 08/13/2024 FINDINGS: Pulmonary parenchyma: Several ground-glass nodular densities are noted in the right upper lobe which appear stable. There is a new area of ground-glass opacity in the posterior inferior right upper lobe measuring 16 millimeters. There is a 4 millimeter nodule anteriorly seen in the right middle lobe, just beneath the fissure which was not present previously. No left-sided abnormalities are identified. No consolidation. Tracheobronchial tree: No bronchiectasis or mucous plugging. Mediastinum and Kim: No dominant adenopathy or fluid collection. Pleura: No effusion. No pneumothorax. Heart: The heart is not dilated. Mild coronary artery calcifications are seen. Aorta: Thoracic aorta non-dilated. Mild atherosclerotic changes. Pulmonary arteries: No gross evidence of emboli. Upper abdomen: No acute findings. Liver has a mildly nodular contour consistent with cirrhosis. The spleen appears mildly enlarged. Both liver and spleen are not fully included on the exam. Bones: Stable L1 compression fracture. There are milddegenerative changes in the spine. Soft tissues: Interval decrease in size of previously noted right breast mass. No axillary adenopathy is visible. IMPRESSION: Previously noted ground-glass opacities persist in the right upper lobe. There are new ground-glass opacities in the posterior inferior right upper lobe and right middle lobe. The findings may be secondary to infectious or inflammatory process versus metastatic disease. Interval decrease in size of right breast mass. No adenopathy. RADIATION DOSE DELIVERED: 103.93mGy.cm Total DLP DATA REPOSITORY: All CT scans at this facility are submitted to the National Radiology Data Registry (NRDR) Dose Index Registry (DIR) with the [employer] (A[employer]). RADIATION OPTIMIZATION: All CT scans at this facility use at least one of these dose optimization techniques: automated exposure control; mA and/or kV adjustment per patient size (includes targeted exams where dose is matched to clinical indication); or iterative reconstruction.
[2024-10-24 09:39] LABS: Estimated GFR 60.61 (mL/min/1.73m2)
[2024-10-24] MEDS: Normal Saline - Diluent 50 ML VIAL IJ (09:58)
[2024-10-24] MEDS: Omnipaque 350 MG/ML 100 ML BTL IJ (09:58)
== END 2024-10-24 00:39 ==
LOC: DI 00:20
PROVIDERS: PCP Internal Medicine; Visit Provider Radiology Radiation Oncology
DX: R91.1 Solitary pulmonary nodule (principal)
CPT/HCPCS: 71260; 82565; J3490